=== PATIENT | male | born 1950 | race Caucasian/White ===

== ENCOUNTER 2017-07-02 07:53 | Outpatient (CLI) | payer MEDICARE ==
--- NOTE | 2017-07-02 15:07 | RAD ---
UPPER GI: Date: 07-02-17 History: Epigastric pain, assess for peptic ulcer disease. FINDINGS: [employer] radiograph of the chest demonstrates no pneumothorax or pleural fluid and no focal consolidatio n or alveolar edema. A double contrast upper GI is performed. The images esophagus appears normal in course and contour. No gastroesophageal reflux was elicited du ring this examination. No evidence for a hiatal hernia is noted. The gastric rugal fold pattern appears grossly unremarkable. Imaging of the gastric antrum and duodenal bulb appear unremarkable. Gastric fundus appears unremarka ble. No discrete gastric mass or significant ulceration noted. IMPRESSION: 1. Unremarkable upper GI. POS: [facility]
== END 2017-07-02 07:54 | disposition home or self-care (01) ==
LOC: BICULT 07:53
PROVIDERS: ATTEND Family Medicine
DX: R10.13 Epigastric pain (principal); K76.0 Fatty (change of) liver, not elsewhere classified
CPT/HCPCS: 74247; 76705

== ENCOUNTER 2017-07-10 16:42 | Outpatient (CLI) | payer MEDICARE ==
[2017-07-10 17:41] LABS: Hematocrit 45.1 % (42.0-52.0); Mean Platelet Volume 7.1 fL (7.4-10.4); Red Blood Cell (RBC) Count 5.03 mill/uL (4.70-6.10); White Blood Cell (WBC) Count 7.6 thou/uL (4.8-10.8)
[2017-07-10 17:47] LABS: Prothrombin Time 13.2 SEC (12.0-14.7)
[2017-07-10 17:48] LABS: PTT 28.1 SEC (22.9-36.1)
--- NOTE | 2017-07-10 17:50 | RAD ---
CHEST TWO VIEWS: 07/10/17 HISTORY: Preop. Heart size and mediastinum are within normal limits. The lungs are clear of infiltrates. There are no significant bony findings. IMPRESSION: No active intrathoracic disease. POS: [facility]
[2017-07-10 18:01] LABS: ALT (SGPT) 22 U/L (8-55); AST (SGOT) 16 U/L (5-34); Alkaline Phosphatase 89 U/L (40-150); Anion Gap 13 mmol/L (10-20); BUN (Urea Nitrogen) 13 mg/dL (8.4-25.7); Bilirubin, Total 0.4 mg/dL (0.2-1.2); Calc. Creatinine Clearance 0 mL/min (70-130); Calcium 9.4 mg/dL (7.8-10.44); Carbon Dioxide 26 mmol/L (23-31); Chloride 102 mmol/L (98-107); Estimated GFR-MDRD 69; Globulin 2.9 g/dL (2.4-3.5); Protein, Total 7.1 g/dL (5.8-8.1)
== END 2017-07-10 16:43 | disposition home or self-care (01) ==
LOC: LABBT 16:42
PROVIDERS: ATTEND Internal Medicine Cardiovascular Disease
DX: Z01.818 Encounter for other preprocedural examination (principal)
CPT/HCPCS: 71020; 80053; 85027; 85610; 85730

== ENCOUNTER 2017-07-12 06:02 | Day surgery (SDC) | payer MEDICARE ==
[2017-07-10 17:41] VITALS: BMI 31.5
[2017-07-12] MEDS ORDERED: Heparin 10,000 UNITS/1 ML VIAL ONE (06:27)
[2017-07-12 06:52] LABS: Cardiac Risk 4.5 (Less than 4.5)
[2017-07-12] MEDS ORDERED: Midazolam HCl 2 mg/2 ml Vial ONE (07:08)
[2017-07-12] MEDS ORDERED: Fentanyl 100 MCG/2 ML VIAL ONE (07:08)
[2017-07-12] MEDS ORDERED: Protamine Sulfate 50 MG/5 ML VIAL ONE (07:32)
[2017-07-12] MEDS ORDERED: Iopamidol 370 76% 100 ML VIAL ONE (11:28)
--- NOTE | 2017-07-12 14:16 | EKG ---
Test Reason : PREOP Blood Pressure : / mmHG Vent. Rate : 071 BPM Atrial Rate : 071 BPM P-R Int : 160 ms QRS Dur : 108 ms QT Int : 414 ms P-R-T Axes : 063 -03 054 degrees QTc Int : 449 ms Normal sinus rhythm Inferior infarct , age undetermined Abnormal ECG No previous ECGs available Confirmed by DR. Jesus WHELAN ([id number]) on 07/12/2017 2:16:13 PM Referred By: ADRIANNA Confirmed By:DR. Jesus WHELAN
== END 2017-07-12 15:05 | disposition home or self-care (01) ==
LOC: CCL 06:02
PROVIDERS: ATTEND Internal Medicine Cardiovascular Disease
DX: R94.39 Abnormal result of other cardiovascular function study (principal); I10 Essential (primary) hypertension; E78.5 Hyperlipidemia, unspecified; J30.9 Allergic rhinitis, unspecified; Z79.82 Long term (current) use of aspirin; Z79.1 Long term (current) use of non-steroidal anti-inflammatories (NSAID); Z79.899 Other long term (current) drug therapy; Z88.1 Allergy status to other antibiotic agents; Z98.52 Vasectomy status; Z98.49 Cataract extraction status, unspecified eye
CPT/HCPCS: 80061; 85347; 93005; 93458; C1769; 93010; 99152; J1644; J2250; J2720; J3010

== ENCOUNTER 2019-07-10 10:57 | Outpatient (CLI) | payer MEDICARE ==
--- NOTE | 2019-07-10 12:25 | BD ---
BONE DENSITOMETRY: Date: 07/10/19 INDICATION: 69-year-old male to assess for osteoporosis. FINDINGS: Lumbar Spine: BMD (g/cm2) L1 0.983 T-Score: -0.8 L2 0.922 T-Score: -1.6 L3 1.271 T-Score: 1.5 L4 1.219 T-Score: 1.2 Total 1.103 T-Score: 0.1 Femoral Neck: 0.803 T-Score: -0.9 Total: 1.099 T-Score: 0.4 IMPRESSION: Bone mineral density of the lumbar spine and femoral neck are both within normal range. POS: [facility]
== END 2019-07-10 10:58 | disposition home or self-care (01) ==
LOC: BICMAMMO 10:57
PROVIDERS: ATTEND Internal Medicine Rheumatology
DX: M81.0 Age-related osteoporosis without current pathological fracture (principal); M85.88 Other specified disorders of bone density and structure, other site
CPT/HCPCS: 77080

== ENCOUNTER 2019-08-01 10:09 | Outpatient (CLI) | payer MEDICARE ==
--- NOTE | 2019-08-01 10:26 | RAD ---
RIGHT ANKLE 3 VIEWS: HISTORY: Injury, right ankle pain, Achilles bursitis/tendinitis FINDINGS: Soft tissue swelling is present including the posterior aspect. The ankle mortise is maintained. No a cute fracture or dislocation is identified.
== END 2019-08-01 10:10 | disposition home or self-care (01) ==
LOC: BICRAD 10:09
PROVIDERS: ATTEND Family Medicine
DX: M76.61 Achilles tendinitis, right leg (principal)

== ENCOUNTER 2019-12-23 10:37 | Outpatient (CLI) | payer MEDICARE ==
--- NOTE | 2019-12-23 15:03 | MRI ---
RIGHT ANKLE MRI WITHOUT IV CONTRAST: HISTORY: Partial ruptured Achilles tendon right side, posterior ankle pain. FINDINGS: Multiplanar, multisequence MRI examination of the right ankle is performed. There is a very large he terogeneous signal somewhat nodular mass which appears to be encasing the Achilles tendon measuring 4 .8 x 6.8 cm in AP and transverse dimensions and at least 9 cm in craniocaudal length, although the mo st cranial portion of this mass is not included on this ankle study. The Achilles tendon appears to be essentially unremarkable other than being encased by this large mass. This is not an Achilles ten don xanthoma. Some other type of neoplastic mass is favored including synovial sarcoma or giant cell tumor of a tendon sheath. Small intraosseous cyst within the talus bone without adjacent marrow edema. Some scattered subcutan eous edema and fat stranding about the ankle and hindfoot. The peroneus tendon brevis tendon appears to be somewhat thinned possibly representing a partial thickness tear, but there is no complete full -thickness or retracted tear. The flexor and extensor tendons appear unremarkable. The plantar fasc ia appears unremarkable. No talar dome osteochondral defect. Medial and lateral collateral complexe s appear unremarkable. Sinus tarsi appears unremarkable. There does appear to be some fluid in the lateral subtalar joint. IMPRESSION: Very large heterogeneous signal mass encasing the Achilles tendon not completely included on this beny dy but neoplastic mass is a prime concern. I would recommend a followup MRI of the right lower extre mity including the ankle but extending cranially into the calf to completely include this mass. This MRI should be performed with and without Gadolinium contrast to evaluate for enhancement features. Intraosseous cyst on the talus bone without abnormal marrow edema. Thinning of the peroneus brevis t endon but without complete full-thickness or retracted tear. Diffuse subcutaneous edema at the level of the ankle and hindfoot. CODE T POS: [facility]
== END 2019-12-23 10:38 | disposition home or self-care (01) ==
LOC: BICMRI 10:37
PROVIDERS: ATTEND Orthopaedic Surgery
DX: S86.011A Strain of right Achilles tendon, initial encounter (principal); M76.61 Achilles tendinitis, right leg

== ENCOUNTER → 2021-04-12 | Outpatient (CLI) | payer MEDICARE ==
[2021-04-13 12:45] LABS: SARS-CoV-2 PCR by NAA Not Detected (NotDetected)
== END ==
LOC: LABBT 08:00
PROVIDERS: ATTEND Internal Medicine Cardiovascular Disease
DX: Z01.812 Encounter for preprocedural laboratory examination (principal); Z20.822 Contact with and (suspected) exposure to COVID-19
CPT/HCPCS: U0003; U0005

== ENCOUNTER 2021-04-15 06:38 | Day surgery (SDC) | payer MEDICARE ==
[2021-04-14 10:06] VITALS: BMI 29.9
[2021-04-15] MEDS ORDERED: PROPOFOL 20 ML ONE (08:30)
[2021-04-15] MEDS ORDERED: PHENYLEPHRINE-NS 100 MCG/ML 10 ML SYRINGE ONE (08:52)
== END 2021-04-15 10:32 | disposition home or self-care (01) ==
LOC: CCL 06:38
PROVIDERS: ATTEND Internal Medicine Cardiovascular Disease
PROC: B24BZZ4 Ultrasonography of Heart with Aorta, Transesophageal (ICD-10-PCS; principal; 2021-04-15)
DX: I08.1 Rheumatic disorders of both mitral and tricuspid valves (principal); I70.0 Atherosclerosis of aorta; I87.2 Venous insufficiency (chronic) (peripheral); I10 Essential (primary) hypertension; E78.00 Pure hypercholesterolemia, unspecified; C49.9 Malignant neoplasm of connective and soft tissue, unspecified; C78.00 Secondary malignant neoplasm of unspecified lung; K27.9 Peptic ulcer, site unspecified, unspecified as acute or chronic, without hemorrhage or perforation; K21.00 Gastro-esophageal reflux disease with esophagitis, without bleeding; Z79.82 Long term (current) use of aspirin; Z79.899 Other long term (current) drug therapy; Z88.1 Allergy status to other antibiotic agents
CPT/HCPCS: 93312; J2704

== ENCOUNTER 2022-02-13 15:46 | Outpatient (CLI) | payer MEDICARE | END 2022-02-13 15:47 | disposition home or self-care (01) | LOC: BICRAD 15:46 | PROVIDERS: ATTEND Internal Medicine Rheumatology | DX: M25.562 Pain in left knee (principal); M54.2 Cervicalgia; M47.812 Spondylosis without myelopathy or radiculopathy, cervical region; M17.12 Unilateral primary osteoarthritis, left knee | CPT/HCPCS: 72050 ==

== ENCOUNTER 2022-06-23 09:08 | Outpatient (CLI) | payer MEDICARE ==
[2022-06-23 10:14] LABS: #Basophils 0.1 10x3/uL (0.0-0.2); #Eosinphils 0.2 10x3/uL (0.0-0.5); #Monocytes 0.7 10x3/uL (0.0-1.1); #Neutrophils 4.8 10x3/uL (1.5-8.4); %Eosinophils 2.1 % (0.0-6.0); %Lymphocytes 18.2 % (18.0-47.0); %Monocytes 10.4 % (0.0-10.0); %Neutrophils 67.9 % (40.0-75.0); Hemoglobin 15.4 g/dL (13.5-17.5); Mean Corpuscular HGB CONC 33.7 g/dL (32.0-36.0); Mean Corpuscular Hemoglobin 31.4 pg (27.0-33.0); Mean Corpuscular Volume 93.1 fl (81.2-95.1); Platelet Count 243 10x3/uL (150-450); RBC Distribution Width 14.2 % (11.5-14.5); Red Blood Cell (RBC) Count 4.91 10x6/uL (4.32-5.72); White Blood Cell (WBC) Count 7.1 10x3/uL (3.5-10.5)
[2022-06-23 10:31] LABS: INR-International Normal Ratio 0.9; Prothrombin Time 10.3 sec (9.5-12.1)
[2022-06-23 10:38] LABS: Anion Gap 14 mmol/L (10-20); BUN (Urea Nitrogen) 9 mg/dL (8.4-25.7); Calc. Creatinine Clearance 0 mL/min (70-130); Calcium 9.4 mg/dL (7.8-10.44); Carbon Dioxide 27 mmol/L (23-31); Chloride 104 mmol/L (98-107); Estimated GFR 70; Glucose 85 mg/dL (83-110); Sodium 141 mmol/L (136-145)
== END 2022-06-23 09:09 | disposition home or self-care (01) ==
LOC: LABBT 09:08
PROVIDERS: ATTEND Orthopaedic Surgery
DX: Z01.818 Encounter for other preprocedural examination (principal); M17.12 Unilateral primary osteoarthritis, left knee
CPT/HCPCS: 71046; 80048; 85025; 85610; 87081; 93005; 93010

== ENCOUNTER 2022-06-27 07:59 | Observation (INO) | payer MEDICARE ==
[2022-06-27] MEDS ORDERED: Tranexamic Acid 1,000 MG/10 ML VIAL ONE (08:27)
[2022-06-27] MEDS ORDERED: Vancomycin (BATCH) 1.5 GRAM/300 ML BAG ONE (08:27)
[2022-06-27] MEDS ORDERED: Sodium Chloride 0.9% 100 ML ONE ×2 (08:27→11:16)
[2022-06-27 09:12] LABS: SARS-CoV-2 NAA Rapid Test Not Detected (NotDetected)
[2022-06-27] MEDS ORDERED: Midazolam HCl 2 mg/2 ml Vial ONE (09:54)
[2022-06-27] MEDS ORDERED: Bupivacaine PF 0.5% 30 ML VIAL ONE ×2 (09:54→10:19)
[2022-06-27] MEDS ORDERED: FENTANYL 50 MCG/ML 1 ML VIAL ONE (09:54)
[2022-06-27] MEDS ORDERED: Promethazine HCl 25 MG/ML VIAL IM PRN ×3 (10:45→12:31)
[2022-06-27] MEDS ORDERED: Ondansetron PF 4 MG/2 ML Vial IVP PRN ×2 (10:45→11:02)
[2022-06-27] MEDS ORDERED: traMADol HCl 50 MG TAB PO PRN ×2 (10:45)
[2022-06-27] MEDS ORDERED: Ropivacaine 0.2% 550 ML 550 ML NERVE BLCK SCH (10:45)
[2022-06-27] MEDS ORDERED: HYDROcodone/Acetaminophen 10/325 mg Tablet PO PRN ×2 (10:45)
[2022-06-27] MEDS ORDERED: Zolpidem Tartrate 5 MG TAB PO PRN ×2 (10:45→11:02)
[2022-06-27] MEDS ORDERED: Fentanyl 100 MCG/2 ML VIAL IV PRN (10:45)
[2022-06-27] MEDS ORDERED: diphenhydrAMINE 25 MG CAP PO PRN (11:02)
[2022-06-27] MEDS ORDERED: Acetaminophen 325 MG TAB PO PRN (11:02)
[2022-06-27] MEDS ORDERED: Ondansetron ODT 8 MG TAB PO PRN (11:03)
[2022-06-27] MEDS ORDERED: fentaNYL PF 100 MCG/2 ML SYRINGE ONE (11:12)
[2022-06-27] MEDS ORDERED: CEFAZOLIN 2 GM VIAL ONE (11:16)
[2022-06-27] MEDS ORDERED: Ondansetron PF 4 MG/2 ML Vial ONE (11:33)
[2022-06-27] MEDS ORDERED: Dexamethasone 20 MG/5 ML VIAL ONE (11:33)
[2022-06-27] MEDS ORDERED: PROPOFOL 200 MG/20 ML VIAL ONE (11:33)
[2022-06-27] MEDS ORDERED: Promethazine HCl 25 MG/ML VIAL IVPB PRN (12:31)
[2022-06-27] MEDS ORDERED: Ketorolac Tromethamine 30 MG/ML VIAL IVP PRN (12:31)
[2022-06-27] MEDS ORDERED: HYDROmorphone 2 MG/ML VIAL SLOW IVP PRN (12:31)
[2022-06-27] MEDS ORDERED: Ondansetron HCl/PF 4 MG/2 ML Vial IVP PRN (12:31)
[2022-06-27] MEDS: Sodium Chloride 0.9% 1,000 ML IV SCH ×2 (14:23→21:05)
[2022-06-27] MEDS: Ketorolac Tromethamine 30 MG/ML VIAL IVP SCH ×2 (14:23→17:38)
[2022-06-27] MEDS ORDERED: Ketorolac Tromethamine 30 MG/ML VIAL ONE (14:24)
[2022-06-27 17:31] VITALS: BMI 26.9
[2022-06-27] MEDS: CEFAZOLIN 2 GM in Sodium Chloride 0.9% 100 ML IVPB SCH (17:39)
[2022-06-27] MEDS ORDERED: Atorvastatin Calcium 10 MG TAB PO SCH (21:00)
[2022-06-27] MEDS: Senokot S 8.6-50 MG TAB PO SCH (21:04)
[2022-06-27] MEDS: Aspirin 81 mg Enteric Coated Tablet PO SCH (21:04)
[2022-06-27] MEDS: Ferrous Gluconate 324 MG TAB PO SCH (21:04)
[2022-06-27] MEDS: sulfaSALAzine 500 MG TAB PO SCH (21:05)
[2022-06-28] MEDS: Ketorolac Tromethamine 30 MG/ML VIAL IVP SCH ×3 (04:31→11:25)
[2022-06-28] MEDS: CEFAZOLIN 2 GM in Sodium Chloride 0.9% 100 ML IVPB SCH (05:29)
[2022-06-28 06:46] LABS: Hemoglobin 12.6 g/dL (14.0-18.0); Mean Corpuscular Hemoglobin 31.4 pg (27.0-31.0); Mean Corpuscular Volume 98.3 fl (78.0-98.0); Mean Platelet Volume 7.8 fL (7.4-10.4); Platelet Count 198 10x3/uL (130-400); White Blood Cell (WBC) Count 14.3 10x3/uL (4.8-10.8)
[2022-06-28] MEDS: Sodium Chloride 0.9% 1,000 ML IV SCH (07:51)
[2022-06-28] MEDS ORDERED: Multivitamin W/ Minerals 1 TAB PO SCH (09:00)
[2022-06-28] MEDS ORDERED: Calcium Carbonate 600 MG + Vit D TAB PO SCH (09:00)
[2022-06-28] MEDS ORDERED: Dexamethasone 10 MG/ML VIAL SLOW IVP SCH (09:00)
[2022-06-28] MEDS ORDERED: Multivit, Therapeutic 1 TAB PO SCH (09:00)
[2022-06-28] MEDS ORDERED: Cholecalciferol 1,000 UNITS (25 MCG) TAB PO SCH (09:00)
[2022-06-28] MEDS ORDERED: Dexamethasone 10 MG in Sodium Chloride 0.9% 50 ML IVPB SCH (09:00)
[2022-06-28] MEDS ORDERED: Escitalopram Oxalate 20 mg Tablet PO SCH (09:00)
[2022-06-28] MEDS ORDERED: Furosemide 40 MG TAB PO SCH (09:00)
[2022-06-28] MEDS ORDERED: Loratadine 10 MG TAB PO SCH (09:00)
[2022-06-28] MEDS ORDERED: Aripiprazole 2 MG TAB PO SCH (09:00)
[2022-06-28] MEDS: Aspirin 81 mg Enteric Coated Tablet PO SCH (09:07)
[2022-06-28] MEDS: Senokot S 8.6-50 MG TAB PO SCH (09:08)
[2022-06-28] MEDS: Ferrous Gluconate 324 MG TAB PO SCH (09:08)
[2022-06-28] MEDS: sulfaSALAzine 500 MG TAB PO SCH (10:32)
[2022-06-28 12:23] VITALS: BP 97/57; TEMP 98.7
== END 2022-06-28 13:50 | disposition home or self-care (01) ==
LOC: SDC 07:59 → SURG B 17:01
PROVIDERS: ADMIT Orthopaedic Surgery; ATTEND Orthopaedic Surgery
PROC: 0SRD0J9 Replacement of Left Knee Joint with Synthetic Substitute, Cemented, Open Approach (ICD-10-PCS; principal; 2022-06-27)
DX: M17.12 Unilateral primary osteoarthritis, left knee (principal); I10 Essential (primary) hypertension; E78.5 Hyperlipidemia, unspecified; K21.9 Gastro-esophageal reflux disease without esophagitis; M45.9 Ankylosing spondylitis of unspecified sites in spine; N40.0 Benign prostatic hyperplasia without lower urinary tract symptoms; Z79.82 Long term (current) use of aspirin; Z79.899 Other long term (current) drug therapy; Z88.1 Allergy status to other antibiotic agents; Z89.511 Acquired absence of right leg below knee; Z20.822 Contact with and (suspected) exposure to COVID-19
CPT/HCPCS: 20985; 27447; 73560; 85027; 97110 ×2; 97116 ×2; 97530; A4306; C1713; C1776; J3010; J3370; U0002; 36415; J1100; J1885; J2250; J2405; J2704; J2795; J3490; S0020